=== PATIENT | male | born 1955 | race Caucasian/White ===

== ENCOUNTER 2021-02-24 14:15 | Outpatient (CLI) | payer BC, SELFPAY ==
[2021-02-24 15:08] LABS: SARS-CoV-2 RNA PCR Negative (Negative)
== END 2021-02-24 14:16 | disposition home or self-care (01) ==
LOC: CHSLAB 14:19
PROVIDERS: PCP Physician Assistant; Visit Provider Physician Assistant
DX: Z20.822 Contact with and (suspected) exposure to COVID-19 (principal)
CPT/HCPCS: C9803; U0003; U0005

== ENCOUNTER 2022-01-18 09:57 | Outpatient (CLI) | payer MEDICARE, SELFPAY ==
--- NOTE | ~2022-01-18 | CT_ITS ---
EXAMINATION:CT lung screening DATE: 01/18/2022 10:38 INDICATION: Personal history of nicotine dependence. Current smoker with 30 pack year history. TECHNIQUE: Computed tomography (CT) of the chest was performed without intravenous contrast. Automate d exposure control and iterative reconstruction technique were employed. The dose-length product (DLP ) was 244.64 mGy-cm. COMPARISON: Chest CT 09/12/2005 FINDINGS: There is mild emphysema. There is mild atelectasis bilaterally. There is a stable 4 mm nodu le in right middle lobe. A calcified left lung nodule is consistent with old granulomatous disease. T here is a 4 mm nodule in right upper lobe. There is a 4 mm nodule in right upper lobe. There is a 3 m m nodule in left upper lobe. There is a 3 mm nodule at left major fissure. No pleural effusion. The h eart size is normal. There are coronary artery calcifications. No pericardial effusion. There is mild thoracic spondylosis. IMPRESSION: 1. Lung-RADS category 2: Benign appearance or behavior. Continue annual screening with noncontrast lo w-dose chest CT in 12 months. Reviewed, dictated and finalized at location A. OR TACKER IMPRESSION: 1. Lung-RADS category 2: Benign appearance or behavior. Continue annual screeni ng with noncontrast low-dose chest CT in 12 months.
== END 2022-01-18 09:58 | disposition home or self-care (01) ==
LOC: CHSIMG 09:58
PROVIDERS: PCP Nurse Practitioner; Visit Provider Nurse Practitioner
DX: Z87.891 Personal history of nicotine dependence (principal)
CPT/HCPCS: 71271

== ENCOUNTER 2022-02-08 09:35 | Observation (INO) | payer MEDICARE, SELFPAY ==
[2022-02-08] VITALS (33 sets, daily range): BP systolic 108–149; BP diastolic 65–86; PULSE 73–102; RESP 15–29; TEMP 35.8–36.6; O2SAT 82–97; BMI 32.1
--- NOTE | ~2022-02-08 | XR_ITS ---
EXAMINATION: XR chest 2V DATE: 02/08/2022 11:22 INDICATION: Shortness of breath and cough. TECHNIQUE: Frontal and lateral views of the chest were obtained on 3 radiographs. COMPARISON: Chest 2 views 01/16/2014, chest CT 01/18/2022 FINDINGS: There are lucencies and interstitial opacities in the lungs, consistent with emphysema. No pleural effusion or pneumothorax. The heart size is normal. IMPRESSION: 1. Emphysema. Reviewed, dictated and finalized at location A. PATROLMAN IMPRESSION: 1. Emphysema.
--- NOTE | 2022-02-08 09:45 | ED.SOB ---
HPI - SOB/Dyspnea General Chief Complaint: Shortness of Breath/Dyspnea Stated Complaint: low ox level/dizzy/crakle in lungs/confusion Time Seen by Provider: 02/08/22 09:42 Source: patient Mode of arrival: ambulatory History of Present Illness HPI Narrative: 66-year-old male, smoker, history of alcohol use, hypertension, dyslipidemia, chronic low back pain presents to the ER with a 7 day history of -- cough of with minimal mucoid sputum -- shortness of breath. he was noted to be 82% on room air on presentation -- dizziness -- confusion -- diarrhea for the past few days. No vomiting. No abdominal pain . No fever or chest pain he had a negative screening CT scan for malignancy Patient went to [facility] for confusion where he was noted to have the above symptoms. He tested negative for COVID. he tested positive for influenza A. MD elicited complaint: shortness of breath and cough Onset (ago): day(s) ( started 7 days ago) Context: recent illness Exacerbating factors: exertion Relieving factors: nothing Associated symptoms: cough, wheezing and sputum production Treatment prior to arrival: none Related Data Home oxygen amount: none Home Medications Medication Instructions Recorded Confirmed amlodipine 10 mg tablet 10 mg PO DAILY 01/19/22 02/08/22 atenolol 50 mg tablet 50 mg PO DAILY 01/19/22 02/08/22 simvastatin 20 mg tablet 40 mg PO DAILY 01/19/22 02/08/22 valsartan 160 mg tablet 200 mg PO DAILY 01/19/22 02/08/22 Allergies Allergy/AdvReac Type Severity Reaction Status Date / Time No Known Allergies Allergy Verified 02/08/22 09:55 Review of Systems Review of Systems: All systems reviewed & are unremarkable except as noted in HPI and below Constitutional: Constitutional: Reports as per HPI and Reports no additional constitutional complaints Eyes: Eyes: Reports as per HPI and Reports no additional eye complaints ENT: Reports system reviewed and no additional complaints, except as documented and Reports as per HPI Cardiovascular: Cardiovascular: Reports as per HPI and Reports no additional cardiovascular complaints Respiratory: Respiratory: Reports as per HPI, Reports no additional respiratory complaints, Reports chest congestion, Reports cough, Reports dyspnea and Reports wheezing Gastrointestinal: Gastrointestinal: Reports as per HPI, Reports no additional gastrointestinal complaints and Reports diarrhea Genitourinary: Genitourinary: Reports no additional male genitourinary complaints and Reports as per HPI Musculoskeletal: Musculoskeletal: Reports no additional musculoskeletal complaints and Reports as per HPI Integumentary/Breasts: Skin/Breast: Reports system reviewed and no additional complaints, except as docu and Reports as per HPI Neurologic: Reports system reviewed and no additional complaints, except as documented and Reports as per HPI Psychiatric: Psychiatric: Reports no additional psychiatric complaints and Reports as per HPI Endocrine: Endocrine: Reports no additional endocrine complaints and Reports as per HPI Hematologic/Lymphatic: Hematologic/Lymphatic: Reports no additional hematologic/lymphatic complaints and Reports as per HPI Allergic/Immunologic: Allergic/Immunologic: Reports no additional allergic/immunologic complaints and Reports as per HPI PMFSH Past Medical History Medical History Hyperlipidemia Hypertension Surgical History Surgical History Hx of umbilical hernia repair Social History Social History Smoking packs per day: 1 Smoking cigarettes per day: 20.0 Years smoked: 35 Smoking pack-years: 35.00 Smoking status: Current every day smoker Tobacco type: cigarettes Alcohol intake: current Drinks per week: 42 Substance use: unknown Spiritual care concerns: No Exam Const:
--- NOTE | 2022-02-08 09:46 | ECG_ITS ---
Measurements Intervals [place] Rate: 83 P: 55 OK: 151 QRS: 37 QRSD: 103 T: 49 QT: 338 QTc: 398 Interpretive Statements SINUS RHYTHM BASELINE ARTIFACT- I, II, V1-V6 NORMAL ECG NO PREVIOUS ECG AVAILABLE FOR COMPARISON Electronically Signed On 02-08-2022 10:36:59 [employer] by Shane West D.O.
[2022-02-08] MEDS: IPRATROPIUM 0.5 MG/ALBUTEROL SULFATE 2.5 MG AMPUL.NEB 3 ML INHALATION (10:10)
[2022-02-08 10:14] LABS: Base Excess ABG 1.4 mmol/L (0-2); Carboxyhemoglobin 0.3 % (0-1.5); Methemoglobin ABG 0.1 % (0-1.5); Oxygen Content ABG 17.1 %vol (16.0-22.0); Oxygen Saturation ABG 89.5 % (95-97); Oxyhemoglobin 89.1 % (94-100); PCO2 ABG 36.1 mmHg (35-45); PO2 ABG 56.2 mmHg (80-90); Reduced Hemoglobin 10.5 % (0-1.5); Total Hemoglobin 13.7 g/dL (12.0-18.0); pH ABG 7.46 (7.35-7.45)
[2022-02-08 10:15] LABS: Device NASAL CANNULA; Modified Allen's Test Pass; Site Drawn RIGHT RADIAL
[2022-02-08 10:17] LABS: Hematocrit 37.4 % (37.0-46.0); Hemoglobin 13.2 g/dL (12.4-15.3); Mean Corpuscular HGB Conc 35.3 g/dL (32.0-36.0); Mean Corpuscular Hemoglobin 31.7 pg (27.0-31.0); Mean Corpuscular Volume 89.7 fL (78.0-102.0); Mean Platelet Volume 9.2 fl (8.7-11.0); Platelet Count Result 322 K/mm3 (150-420); Red Blood Count 4.17 M/mm3 (4.70-6.10); Red Cell Distribution Width 12.1 % (11.6-14.4); White Blood Count 19.7 K/mm3 (4.8-10.8)
[2022-02-08] MEDS: guaiFENesin/CODEINE 100/10 MG 5 ML SYRUP PO ×2 (10:19→21:27)
--- NOTE | 2022-02-08 10:21 | PC.NURSE ---
PT HAS PERSISTENT DRY COUGH, MEDICATION ADMINISTERED, ICE CHIPS, WATER PROVIDED. DAUGHTER AT BEDSIDE. NEB TX COMPLETED. PT IS AWAITING RESULTS AT THIS TIME.
[2022-02-08 10:30] LABS: Band Neutrophils Percent 2 % (0-6); Lymphocytes Absolute Manual 2.56 K/mm3 (1.1-4.5); Lymphocytes Percent Manual 13 % (18-44); Neutrophils Absolute Manual 16.35 K/mm3 (1.3-6.7); Neutrophils Percent Manual 81 % (46-73); Total Cells Counted 100
[2022-02-08 10:31] LABS: Monocytes Absolute Manual 0.78 K/mm3 (0.1-0.90); Monocytes Percent Manual 4 % (3-9); Platelet Estimate Adequate (Adequate)
[2022-02-08 10:37] LABS: Alanine Aminotransferase 85 U/L (16-63); Albumin Level 2.6 g/dL (3.4-5.0); Alkaline Phosphatase 70 U/L (46-116); Anion Gap 8 mmol/L (8-16); Aspartate Amino Transferase 49 U/L (15-37); Bilirubin,Total 0.3 mg/dL (0.00-1.00); Blood Urea Nitrogen 11 mg/dL (7-18); Carbon Dioxide 30 mmol/L (21-32); Chloride 92 mmol/L (98-108); Estimated CRCL calculation 89 ml/min; Estimated Glomerular Filt Rate > 60; Glucose 127 mg/dL (70-99); Osmolality Calculated 271 mOsm/kg (285-295); Potassium 3.5 mmol/L (3.5-5.1); Sodium 130 mmol/L (136-145); Total Protein 6.8 g/dL (6.4-8.2); Troponin I 5.3 ng/L (0.00-60.4)
[2022-02-08 10:44] LABS: Calcium 8.6 mg/dL (8.5-10.1); NT Pro B Type Natriuretic Pept 115 pg/mL (0-125)
[2022-02-08 10:52] LABS: Influenza A QL RT-PCR Positive (Negative); Influenza B QL RT-PCR Negative (Negative); SARS-CoV-2 RNA PCR Negative (Negative)
[2022-02-08 10:53] LABS: RSV RNA, RT-PCR Negative (Negative)
--- NOTE | 2022-02-08 11:05 | PC.NURSE ---
COUGH HAS IMPROVED. DAUGHTER REMAINS AT BEDSIDE. PT HAS BEEN UPDATED. DENIES ANY NEEDS OR COMPLAINTS. PT IS GOING TO RADIOLOGY AT THIS TIME. WILL CONTINUE TO MONITOR.
[2022-02-08] MEDS: methylPREDNISolone SOD SUCC 125 MG VIAL IV PUSH (12:00)
--- NOTE | 2022-02-08 12:20 | PC.NURSE ---
2ND CALL PLACED TO HOSPITALIST AT THIS TIME. DAUGHTER HAS LEFT, TAKEN PART OF PT BELONGINGS WITH HER. BELONGINGS LIST WAS COMPLETED. PT AND DAUGHTER ARE AWARE OF PLAN OF CARE. NAD NOTED AT THIS TIME. PT DENIES ANY NEEDS OR COMPLAINTS. WILL CONTINUE TO MONITOR.
--- NOTE | 2022-02-08 12:40 | PC.NURSE ---
LUNCH TRAY ORDERED, PT UP TO BEDSIDE WITH URINAL AT THIS TIME. HOSPITALIST RETURNED CALL AND ACCEPTED PT. WILL CONTINUE TO MONITOR.
--- NOTE | 2022-02-08 12:49 | PC.NURSE ---
pt is eating lunch tray at this time. iv medication infusing as ordered without difficulty. pt is to be admitted to room 203, aware of plan of care.
--- NOTE | 2022-02-08 13:39 | PC.NURSE ---
Pt admitted to room 203 from ED as an OBS pt. O2 @ 4L/NC, A/Ox3, denies pain at this time. Pt is accompanied by his daughter. RN instructed pt regarding the call light system, visiting hours and Droplet precautions. Pt and Daughter verbalize understanding.
[2022-02-08] MEDS: HYDROcodone/acetaminophen (*CRX) 5-325 MG TABLET 1 TAB PO (19:48)
[2022-02-09] VITALS: PULSE 70
[2022-02-09 02:49] VITALS: PULSE 68
[2022-02-09 05:40] LABS: Hemoglobin 12.6 g/dL (12.4-15.3); Mean Corpuscular Hemoglobin 32.5 pg (27.0-31.0); Mean Corpuscular Volume 90.2 fL (78.0-102.0); Mean Platelet Volume 9.2 fl (8.7-11.0); Platelet Count Result 319 K/mm3 (150-420); Red Blood Count 3.88 M/mm3 (4.70-6.10); Red Cell Distribution Width 12.1 % (11.6-14.4); White Blood Count 17.8 K/mm3 (4.8-10.8)
[2022-02-09 05:53] LABS: Anion Gap 6 mmol/L (8-16); Blood Urea Nitrogen 13 mg/dL (7-18); Calcium 8.9 mg/dL (8.5-10.1); Carbon Dioxide 31 mmol/L (21-32); Chloride 94 mmol/L (98-108); Estimated CRCL calculation 93 ml/min; Estimated Glomerular Filt Rate > 60; Glucose 159 mg/dL (70-99); Osmolality Calculated 275 mOsm/kg (285-295); Potassium 4.2 mmol/L (3.5-5.1); Sodium 131 mmol/L (136-145)
[2022-02-09 06:03] LABS: Band Neutrophils Percent 1 % (0-6); Basophils Percent Manual 0 % (0-1); Eosinophils Percent Manual 0 % (1-6); Lymphocytes Absolute Manual 1.42 K/mm3 (1.1-4.5); Lymphocytes Percent Manual 8 % (18-44); Metamyelocytes Percent 2 %; Monocytes Absolute Manual 0.35 K/mm3 (0.1-0.90); Monocytes Percent Manual 2 % (3-9); Myelocytes Percent 1 %; Neutrophils Absolute Manual 15.48 K/mm3 (1.3-6.7); Neutrophils Percent Manual 86 % (46-73); Total Cells Counted 100
[2022-02-09 06:04] LABS: Platelet Estimate Adequate (Adequate)
[2022-02-09 06:27] LABS: Base Excess ABG 3.5 mmol/L (0-2); Oxygen Content ABG 17.7 %vol (16.0-22.0); Oxygen Saturation ABG 91.1 % (95-97); Oxyhemoglobin 90.5 % (94-100); PCO2 ABG 37.4 mmHg (35-45); PO2 ABG 61.4 mmHg (80-90); Total Hemoglobin 13.9 g/dL (12.0-18.0); pH ABG 7.48 (7.35-7.45)
[2022-02-09 06:35] LABS: Device NASAL CANNULA; Modified Allen's Test Pass; Site Drawn RIGHT RADIAL
[2022-02-09 08:00] VITALS: BP 147/78; PULSE 82; PULSE 85; RESP 16; TEMP 36.8; O2SAT 96
[2022-02-09] MEDS: SIMVASTATIN 10 MG TABLET 40 MG PO (09:06)
[2022-02-09] MEDS: VALSARTAN 80 MG TABLET 160 MG PO (09:07)
[2022-02-09] MEDS: amLODIPine BESYLATE 5 MG TABLET 10 MG PO (09:07)
[2022-02-09 09:08] VITALS: PULSE 82
[2022-02-09] MEDS: atenoloL 50 MG TABLET PO (09:08)
--- NOTE | 2022-02-09 09:18 | PM.IMHP ---
H&P: HPI History of Present Illness Date/Time: 02/09/22 09:18 Chief Complaint: shortness of breath dyspnea Narrative: this is a 66-year-old male presented to our emergency department after going to his primary care physician at [facility], patient has a past medical history of hyperlipidemia, hypertension and nicotine addiction. According to patient while at home he felt fatigued with decreased appetite shortness of breath, productive cough with white sputum and diarrhea. According to patient he had the symptoms for approximately 2 weeks. He did take [id number] flu and cold medication PMFSH Past Medical History Medical History Hyperlipidemia Hypertension Surgical History Surgical History Hx of umbilical hernia repair Social History Social History (Updated 02/08/22 @ 13:48 by Katie Rush RN) Smoking packs per day: 1 Smoking cigarettes per day: 20.0 Years smoked: 40 Smoking pack-years: 40.00 Smoking status: Current every day smoker Tobacco type: cigarettes Second hand tobacco smoke exposure: No Alcohol intake: never Drinks per week: 42 Substance use: never Substance use type: does not use Lack of Transportation: No Lack of Food: Never True Current Housing: I Have Housing Concerned About Future Housing: No Difficulty Paying Gas/Electric Bills: No Difficulty Paying for Meds: No Currently Unemployed: No Education: High School Diploma/GED Difficulty w/ Childcare or Family Care: No Living arrangements: alone Gender identity (if verbalized by the patient): Male Sexual Orientation (if Verbalized by the Patient): Straight or Heterosexual Spiritual care concerns: No Meds Home Medications and Allergies Home Medications Medication Instructions Recorded Confirmed Type amlodipine 10 mg tablet 10 mg PO DAILY 01/19/22 02/08/22 History atenolol 50 mg tablet 50 mg PO DAILY 01/19/22 02/08/22 History simvastatin 20 mg tablet 40 mg PO DAILY 01/19/22 02/08/22 History valsartan 160 mg tablet 200 mg PO DAILY 01/19/22 02/08/22 History Allergies Allergy/AdvReac Type Severity Reaction Status Date / Time No Known Allergies Allergy Verified 02/08/22 09:55 Vital Signs Vital Signs - 24 hr 02/08/22 09:40 02/08/22 09:40 02/08/22 10:10 Temperature 96.6 F L Pulse Rate 88 88 81 Respiratory Rate 18 29 H Blood Pressure 149/77 H Pulse Oximetry 82 L 93 Oxygen Delivery Room Air Oxygen Flow Rate 4 02/08/22 10:21 02/08/22 09:45 02/08/22 09:53 Temperature Pulse Rate 102 H 85 Respiratory Rate 24 H 24 H Blood Pressure Pulse Oximetry 93 92 97 Oxygen Delivery Nasal Cannula Oxygen Flow Rate 10 4 02/08/22 10:00 02/08/22 10:15 02/08/22 10:30 Temperature Pulse Rate 91 82 84 Respiratory Rate 27 H 18 15 Blood Pressure Pulse Oximetry 93 96 85 L Oxygen Delivery Oxygen Flow Rate 02/08/22 10:45 02/08/22 11:00 02/08/22 11:01 Temperature Pulse Rate 77 77 82 Respiratory Rate 19 24 H 25 H Blood Pressure 135/71 Pulse Oximetry 92 95 95 Oxygen Delivery Oxygen Flow Rate 02/08/22 11:02 02/08/22 11:16 02/08/22 11:30 Temperature Pulse Rate 78 74 75 Respiratory Rate 19 20 23 H Blood Pressure Pulse Oximetry 92 91 93 Oxygen Delivery Oxygen Flow Rate 02/08/22 11:45 02/08/22 11:58 02/08/22 12:00 Temperature Pulse Rate 79 77 81 Respiratory Rate 28 H 21 H 24 H Blood Pressure 126/71 Pulse Oximetry 93 93 Oxygen Delivery Oxygen Flow Rate 02/08/22 12:01 02/08/22 12:15 02/08/22 12:16 Temperature Pulse Rate 88 73 79 Respiratory Rate 24 H 21 H 20 Blood Pressure 146/73 H 139/65 Pulse Oximetry Oxygen Delivery Oxygen Flow Rate 02/08/22 13:01 02/08/22 12:17 02/08/22 12:30 Temperature 97.1 F L Pulse Rate 94 75 79 Respiratory Rate 18 25 H 21 H Bloo
--- NOTE | 2022-02-09 09:22 | PM.SD2 ---
Same Day Admit/Disch: HPI History of Present Illness Chief complaint: low ox level/dizzy/crakle in lungs/confusion Narrative: this is a 66-year-old male presented to our emergency department after going to his primary care physician at [facility], patient has a past medical history of hyperlipidemia, hypertension and nicotine addiction. According to patient while at home he felt fatigued with decreased appetite shortness of breath, productive cough with white sputum and diarrhea. According to patient he had the symptoms for approximately 2 weeks. He did take [id number] flu and cold medication. on admission patient wbc's 19 7, hemoglobin 13.2, hematocrit 374, platelets 322, sodium 130, potassium 3.5, BUN 11, creatinine 0.82, total bilirubin 0.3, AST 49, ALT 85, troponin 5.3, BNP 115, ABG pH 7.46, CO2 36, pCO2 56.2, bicarb 25, EKG normal sinus rhythm patient positive for influenza. Chest x-ray indicates emphysema. Patient admitted for influenza and COPD exacerbation. Patient was treated with azithromycin Rocephin in his aunt, neb treatments and steroids. Patient will discharge home with Rocephin and azithromycin, Tamiflu, albuterol and Symbicort, Tessalon Perle in [facility]. Discharge instructions reviewed with patient, as well as provided in writing per nursing staff. The instructions also include specific and strict return/GO TO THE ER as well as f/u information. All questions have been answered, and the patient and/or family deny any further questions with discharge and discharge plan. patient is anxious for discharge . The patient denies SOB, CP, palpitation, extremity numbness, lightheadedness, dizziness, constipation, diarrhea, chills, or fever. does complain of a cough PMFSH Past Medical History Medical History (Updated 02/09/22 @ 11:53 by MICHELLE Sampson) Hyperlipidemia Hypertension Surgical History Surgical History Hx of umbilical hernia repair Social History Social History (Updated 02/08/22 @ 13:48 by Katie Rush RN) Smoking packs per day: 1 Smoking cigarettes per day: 20.0 Years smoked: 40 Smoking pack-years: 40.00 Smoking status: Current every day smoker Tobacco type: cigarettes Second hand tobacco smoke exposure: No Alcohol intake: never Drinks per week: 42 Substance use: never Substance use type: does not use Lack of Transportation: No Lack of Food: Never True Current Housing: I Have Housing Concerned About Future Housing: No Difficulty Paying Gas/Electric Bills: No Difficulty Paying for Meds: No Currently Unemployed: No Education: High School Diploma/GED Difficulty w/ Childcare or Family Care: No Living arrangements: alone Gender identity (if verbalized by the patient): Male Sexual Orientation (if Verbalized by the Patient): Straight or Heterosexual Spiritual care concerns: No Same Day Admit/Disch: Med Pre-admit Medications Home Medications Medication Instructions Recorded Confirmed Type amlodipine 10 mg tablet 10 mg PO DAILY 01/19/22 02/08/22 History atenolol 50 mg tablet 50 mg PO DAILY 01/19/22 02/08/22 History simvastatin 20 mg tablet 40 mg PO DAILY 01/19/22 02/08/22 History valsartan 160 mg tablet 200 mg PO DAILY 01/19/22 02/08/22 History albuterol sulfate 90 mcg/actuation 2 puff inhalation QID PRN 02/09/22 Rx aerosol inhaler shortness of breath or wheezing #8.5 grams benzonatate 200 mg capsule 200 mg PO TID PRN cough #90 caps 02/09/22 Rx budesonide-formoterol HFA 160 2 puff inhalation Q12H #10.2 grams 02/09/22 Rx mcg-4.5 mcg/actuation aerosol inhaler (Symbicort) cefdinir 300 mg capsule 300 mg PO Q12H 7 days #14 caps 02/09/22 Rx guaifenesin 400 mg tablet 400 mg PO Q4H PRN congestion #30 02/09/22 Rx tabs loperamide 2 mg capsule (Imodium 2 mg PO Q4H PRN loose stool #30 02/09/22 Rx A-D) caps methylprednisolone 4 mg tablets in See Rx
[2022-02-09 11:00] VITALS: O2SAT 94
--- NOTE | 2022-02-09 12:44 | PC.NURSE ---
Pt discharged to home with family care. Pt discharged with out O2. O2 sat was 96 % on RA. VSS. Discharge instuction given to pt. Pt verbalized understanding. Pt instructed regarding his medications. RN took pt to family car via WC and helped him in.
--- NOTE | 2022-02-10 10:36 | PC.NURSE ---
Unable to contact for discharge call back.
== END 2022-02-09 11:00 | disposition home or self-care (01) ==
LOC: CHSED 11:44 → CHS2ND 13:04
PROVIDERS: Nurse Practitioner Family; Admitting Provider Internal Medicine; Emergency Provider Internal Medicine Critical Care Medicine; PCP Nurse Practitioner; Visit Provider Internal Medicine
DX: J10.1 Influenza due to other identified influenza virus with other respiratory manifestations (principal); J96.01 Acute respiratory failure with hypoxia; J44.1 Chronic obstructive pulmonary disease with (acute) exacerbation; J45.901 Unspecified asthma with (acute) exacerbation; I10 Essential (primary) hypertension; E78.5 Hyperlipidemia, unspecified; M54.50 Low back pain, unspecified; G89.29 Other chronic pain; F17.210 Nicotine dependence, cigarettes, uncomplicated; Z20.822 Contact with and (suspected) exposure to COVID-19
CPT/HCPCS: 36415; 36600; 71046; 80048; 80053; 82375; 82805; 83050; 83880; 84484; 85025; 87040; 87637; 93005; 94640; 96365; 96367; 96375; 99285; A9270; G0378; J0456; J0696; J2930

== ENCOUNTER 2022-02-16 07:07 | Day surgery (SDC) | payer MEDICARE, SELFPAY ==
[2022-01-19 10:51] VITALS: BMI 36.1
--- NOTE | 2022-02-02 06:50 | P.PNAN_ITS ---
Anes - Initial Pre Proc Eval Procedure: Operation Date: 02/02/22 09:30 Proposed Procedures p Screening Colonoscopy - Viral Blake DO Date/Time: 02/02/22 06:50 Surgeon: Viral Blake DO Pre Op Diagnosis: Neoplasm screening Patient Data Age: 66 Gender: M Height: 1.73 m Weight: 108 kg Allergies Allergy/AdvReac Type Severity Reaction Status Date / Time No Known Allergies Allergy Verified 01/19/22 10:51 Home Medications Medication Instructions Recorded Confirmed Type amlodipine 10 mg tablet 10 mg PO DAILY 01/19/22 01/19/22 History atenolol 50 mg tablet 50 mg PO DAILY 01/19/22 01/19/22 History simvastatin 20 mg tablet 20 mg PO DAILY 01/19/22 01/19/22 History valsartan 160 mg tablet 160 mg PO DAILY 01/19/22 01/19/22 History Results Review: All pre-operative results and documents have been reviewed as part of the pre- operative evaluation. PMFSH Past Medical History Medical History (Updated 02/02/22 @ 06:50 by Franc Mcmanus DO) Hyperlipidemia Hypertension Surgical History Surgical History (Updated 02/02/22 @ 06:50 by Franc Mcmanus DO) Hx of umbilical hernia repair Social History Social History Smoking packs per day: 1 Smoking cigarettes per day: 20.0 Years smoked: 35 Smoking pack-years: 35.00 Smoking status: Current every day smoker Tobacco type: cigarettes Alcohol intake: current Drinks per week: 42 Substance use: unknown Living arrangements: alone Spiritual care concerns: No Anes - Eval Final PreProcedure Day of Procedure 02/02/22 06:50 Patient weight: obese Heart: regular rate and rhythm Lungs: clear to auscultation Airway: Mallampati scale class II Neurological: alert and oriented Last oral intake: >/= 8 hours ASA classification: III Emergent: no Anesthetic plan: proceed Anesthesia type and monitoring: general GIVS and standard monitoring Results Review: All pre-operative results and documents have been reviewed as part of the pre- operative evaluation. Informed Consent: The patient's anesthetic plan and its attendant risks and benefits were discussed with the patient/family/POA. Questions were solicited and answers provided to the satisfaction of the patient/family/POA.
--- NOTE | 2022-02-14 14:44 | PC.NURSE ---
1430 pre-op call with pt. pt was scheduled previous but had to cancel procedure, due to illness. Meds were updated and pt states no change in medical history. Pt aware of arrival time 0700 and NPO. Pt states he has instructions for his prep at home.
--- NOTE | 2022-02-16 07:02 | WPDANESEPPF ---
Anes - Initial Pre Proc Eval Procedure: Operation Date: 02/16/22 08:30 Proposed Procedures p Screening Colonoscopy - Viral Blake DO Date/Time: 02/16/22 07:02 Surgeon: Viral Blake DO Pre Op Diagnosis: Neoplasm screening Patient Data Age: 66 Gender: M Height: 1.73 m Weight: 108 kg Allergies Allergy/AdvReac Type Severity Reaction Status Date / Time No Known Allergies Allergy Verified 02/16/22 08:20 Home Medications Medication Instructions Recorded Confirmed Type amlodipine 10 mg tablet 10 mg PO DAILY 01/19/22 02/08/22 History atenolol 50 mg tablet 50 mg PO DAILY 01/19/22 02/08/22 History simvastatin 20 mg tablet 40 mg PO DAILY 01/19/22 02/08/22 History valsartan 160 mg tablet 200 mg PO DAILY 01/19/22 02/08/22 History albuterol sulfate 90 mcg/actuation 2 puff inhalation QID PRN 02/09/22 02/14/22 Rx aerosol inhaler shortness of breath or wheezing #8.5 grams benzonatate 200 mg capsule 200 mg PO TID PRN cough #90 caps 02/09/22 02/14/22 Rx budesonide-formoterol HFA 160 2 puff inhalation Q12H #10.2 grams 02/09/22 02/14/22 Rx mcg-4.5 mcg/actuation aerosol inhaler (Symbicort) guaifenesin 400 mg tablet 400 mg PO Q4H PRN congestion #30 02/09/22 02/14/22 Rx tabs methylprednisolone 4 mg tablets in See Rx Instructions PO .COMPLEX 02/09/22 02/14/22 Rx a dose pack (Medrol (Van)) #21 ea Patient hx anesthesia problems: none Family hx anesthesia problems: none Results Review: All pre-operative results and documents have been reviewed as part of the pre-operative evaluation. [facility] Past Medical History Medical History (Updated 02/16/22 @ 08:40 by Viral Blake DO) Hyperlipidemia Hypertension Surgical History Surgical History Hx of umbilical hernia repair Social History Social History (Updated 02/08/22 @ 13:48 by Katie Rush RN) Smoking packs per day: 1 Smoking cigarettes per day: 20.0 Years smoked: 40 Smoking pack-years: 40.00 Smoking status: Current every day smoker Tobacco type: cigarettes Second hand tobacco smoke exposure: No Alcohol intake: never Drinks per week: 42 Substance use: never Substance use type: does not use Lack of Transportation: No Lack of Food: Never True Current Housing: I Have Housing Concerned About Future Housing: No Difficulty Paying Gas/Electric Bills: No Difficulty Paying for Meds: No Currently Unemployed: No Education: High School Diploma/GED Difficulty w/ Childcare or Family Care: No Living arrangements: alone Gender identity (if verbalized by the patient): Male Sexual Orientation (if Verbalized by the Patient): Straight or Heterosexual Spiritual care concerns: No Anes - Eval Final PreProcedure Day of Procedure 02/16/22 07:02 Patient weight: obese Heart: regular rate and rhythm Lungs: clear to auscultation Airway: Mallampati scale class II Neurological: alert and oriented Last oral intake: 4 hours (black coffee) ASA classification: III Emergent: no Anesthetic plan: proceed Anesthesia type and monitoring: general GIVS and standard monitoring Results Review: All pre-operative results and documents have been reviewed as part of the pre-operative evaluation. Informed Consent: The patient's anesthetic plan and its attendant risks and benefits were discussed with the patient/family/POA. Questions were solicited and answers provided to the satisfaction of the patient/family/POA.
[2022-02-16 07:35] VITALS: BP 133/74; PULSE 68; RESP 16; TEMP 36.8; O2SAT 96
[2022-02-16] MEDS: LACTATED RINGERS 1,000 ML 150 ML IV CONT ×2 (08:27→09:45)
--- NOTE | 2022-02-16 08:40 | PM.IMHP ---
H&P: HPI History of Present Illness Date/Time: 02/16/22 08:40 Chief Complaint: Screening for colorectal cancer Narrative: this is a 66-year-old man who presents for colonoscopy. His last colonoscopy was at least 10 years ago. He denies any hematochezia or melena. He denies any family history of colon cancer. Review of Systems Review of Systems: All systems reviewed & are unremarkable except as noted in HPI and below Constitutional: Constitutional: Denies chills, Denies fever(s), Denies headache(s) and Denies weight loss Eyes: Eyes: Denies change in vision ENT: Denies dizziness, Denies headache(s), Denies neck mass and Denies throat swelling Cardiovascular: Cardiovascular: Denies chest pain, Denies lightheadedness and Denies dyspnea Respiratory: Respiratory: Denies cough, Denies dyspnea and Denies wheezing Gastrointestinal: Gastrointestinal: Denies abdominal pain, Denies change in bowel habits, Denies nausea and Denies vomiting Genitourinary: Genitourinary: Denies hematuria and Denies dysuria Musculoskeletal: Musculoskeletal: Reports as per HPI Integumentary/Breasts: Skin/Breast: Reports as per HPI Neurologic: Denies dizziness and Denies headache(s) Allergic/Immunologic: Allergic/Immunologic: Denies throat swelling and Denies wheezing PMF Past Medical History Medical History (Updated 02/16/22 @ 08:40 by Viral Blake DO) Hyperlipidemia Hypertension Surgical History Surgical History Hx of umbilical hernia repair Social History Social History (Updated 02/08/22 @ 13:48 by Katie Rush RN) Smoking packs per day: 1 Smoking cigarettes per day: 20.0 Years smoked: 40 Smoking pack-years: 40.00 Smoking status: Current every day smoker Tobacco type: cigarettes Second hand tobacco smoke exposure: No Alcohol intake: never Drinks per week: 42 Substance use: never Substance use type: does not use Lack of Transportation: No Lack of Food: Never True Current Housing: I Have Housing Concerned About Future Housing: No Difficulty Paying Gas/Electric Bills: No Difficulty Paying for Meds: No Currently Unemployed: No Education: High School Diploma/GED Difficulty w/ Childcare or Family Care: No Living arrangements: alone Gender identity (if verbalized by the patient): Male Sexual Orientation (if Verbalized by the Patient): Straight or Heterosexual Spiritual care concerns: No Meds Home Medications and Allergies Home Medications Medication Instructions Recorded Confirmed Type amlodipine 10 mg tablet 10 mg PO DAILY 01/19/22 02/16/22 History atenolol 50 mg tablet 50 mg PO DAILY 01/19/22 02/16/22 History simvastatin 20 mg tablet 40 mg PO DAILY 01/19/22 02/16/22 History valsartan 160 mg tablet 200 mg PO DAILY 01/19/22 02/16/22 History albuterol sulfate 90 mcg/actuation 2 puff inhalation QID PRN 02/09/22 02/16/22 Rx aerosol inhaler shortness of breath or wheezing #8.5 grams benzonatate 200 mg capsule 200 mg PO TID PRN cough #90 caps 02/09/22 02/16/22 Rx budesonide-formoterol HFA 160 2 puff inhalation Q12H #10.2 grams 02/09/22 02/16/22 Rx mcg-4.5 mcg/actuation aerosol inhaler (Symbicort) guaifenesin 400 mg tablet 400 mg PO Q4H PRN congestion #30 02/09/22 02/16/22 Rx tabs methylprednisolone 4 mg tablets in See Rx Instructions PO .COMPLEX 02/09/22 02/16/22 Rx a dose pack (Medrol (Van)) #21 ea Allergies Allergy/AdvReac Type Severity Reaction Status Date / Time No Known Allergies Allergy Verified 02/16/22 08:20 Vital Signs Vital Signs - 24 hr 02/16/22 07:35 Temperature 36.8 C Pulse Rate 68 Respiratory Rate 16 Blood Pressure 133/74 Pulse Oximetry 96 Oxygen Delivery Room Air Exam Const: General: no acute distress and alert Orientation/consciousness: patient oriented x3 HENMT: Head: normocephalic and atraumatic Ears: hearing grossly normal bilaterally Face/
[2022-02-16 10:23] VITALS: BP 95/82; PULSE 67; RESP 18; O2SAT 99
[2022-02-16 10:33] VITALS: BP 85/62; PULSE 68; RESP 18; O2SAT 97
[2022-02-16 10:43] VITALS: BP 98/66; PULSE 70; RESP 18; O2SAT 100
--- NOTE | 2022-02-16 10:47 | SUR.PHASEII ---
1033; PT BP 85/62, HR 68. PT AWAKE AND ALERT. SITTING UPRIGHT, DRINKING JUICE, TALKATIVE. DR LINCOLN NOTIFIED. CONTINUE IVF. 1043; BP 98/66. PT AWAKE AND ALERT. DRINKING JUICE, TALKATIVE. COUGHING INTERMITTENTLY. 1053; BP 112/64, SAO2 100%. PT AWAKE AND ALERT. DENIES PAIN. DR LINCOLN NOTIFIED. MAY DISCHARGE PT.
--- NOTE | 2022-02-16 10:48 | WPDANESPN ---
Anes - Prog Note Post-Op Date/Time: 02/16/22 10:48 Cardiovascular status: normal Respiratory status: normal Airway patency: baseline Mental status: baseline Post-Op hydration status: normal Vital Signs: Last Vital Signs Temp 36.8 C 02/16/22 07:35 Pulse 68 02/16/22 10:33 Resp 18 02/16/22 10:33 BP 85/62 L 02/16/22 10:33 Pulse Ox 97 02/16/22 10:33 O2 Del Method Room Air 02/16/22 10:33 Pain Score (VAS): 0 Post-procedural complaints: none Patient Feedback: Patient satisfied with anesthetic care. Other Findings: Patient vital signs back to baseline. Patient denies nausea and vomiting. Patient's pain under control. Patient OK for discharge.
[2022-02-16 10:53] VITALS: BP 112/64; PULSE 70; RESP 18
--- NOTE | 2022-02-16 10:56 | SUR.PHASEII ---
CHECKED ON PT. PT HAS BOTTOM HALF DRESSED,. ASKING TO GO HOME.
[2022-02-16 11:05] VITALS: BP 134/62; PULSE 70; RESP 20
--- NOTE | 2022-02-16 11:07 | SUR.PHASEII ---
WHILE REVIEWING INSTRUCTIONS WITH PT AND DAUGHTER. DISCUSSED CLEAR LIQUID DIET AT FIRST, PT SAID THATS NOT GONNA HAPPEN ALSO DISCUSSED NO DRIVING TODAY AND NO ALCOHOL. PT SAID I'LL DRIVE AND NOT GET CAUGHT. EXPLAINED TO COULD INJURE HIMSELF OR SOMEONE ELSE. DAUGHTER SCOLDING PT.
== END 2022-02-16 11:10 | disposition home or self-care (01) ==
PROVIDERS: PCP Nurse Practitioner; Visit Provider Surgery
PROC: 0DJD8ZZ Inspection of Lower Intestinal Tract, Via Natural or Artificial Opening Endoscopic (ICD-10-PCS; CPT 45378; principal; 2022-02-16 08:30)
DX: Z12.11 Encounter for screening for malignant neoplasm of colon (principal)
CPT/HCPCS: 45380

== ENCOUNTER 2022-02-16 08:00 | Outpatient (NON) | payer MEDICARE, SELFPAY | END 2022-02-16 08:01 | disposition home or self-care (01) | LOC: ANHLAB 02-17 08:11 | PROVIDERS: PCP Nurse Practitioner; Visit Provider Surgery | DX: Z12.11 Encounter for screening for malignant neoplasm of colon (principal); Z12.12 Encounter for screening for malignant neoplasm of rectum; D12.6 Benign neoplasm of colon, unspecified | CPT/HCPCS: 88305 ==

== ENCOUNTER 2022-04-26 10:40 | Outpatient (CLI) | payer MEDICARE, SELFPAY ==
[2022-04-26 11:02] LABS: Basophils Absolute Auto 0.03 K/mm3 (0.00-0.10); Basophils Percent Auto 0.4 % (0.0-1.0); Eosinophils Absolute Auto 0.15 K/mm3 (0.02-0.50); Eosinophils Percent Auto 1.8 % (1.0-6.0); Hematocrit 40.2 % (37.0-46.0); Hemoglobin 13.9 g/dL (12.4-15.3); Immature Granulocyte Absolute 0.05 K/mm3 (0.00-0.00); Immature Granulocyte Percent A 0.6 % (0.0-0.0); Lymphocytes Absolute Auto 2.42 K/mm3 (1.10-4.50); Lymphocytes Percent Auto 28.7 % (18.0-42.0); Mean Corpuscular HGB Conc 34.6 g/dL (32.0-36.0); Mean Corpuscular Hemoglobin 32.2 pg (27.0-31.0); Mean Corpuscular Volume 93.1 fL (78.0-102.0); Mean Platelet Volume 9.3 fl (8.7-11.0); Monocytes Absolute Auto 0.59 K/mm3 (0.10-0.90); Neutrophils Absolute Auto 5.2 K/mm3 (1.7-7.2); Neutrophils Percent Auto 61.5 % (50.0-70.0); Platelet Count Result 222 K/mm3 (150-420); Red Blood Count 4.32 M/mm3 (4.70-6.10); Red Cell Distribution Width 12.1 % (11.6-14.4); White Blood Count 8.4 K/mm3 (4.8-10.8)
[2022-04-26 11:19] LABS: Hemoglobin A1C 5.4 % (<5.7)
[2022-04-26 11:41] LABS: Alanine Aminotransferase 25 U/L (16-63); Albumin Level 3.5 g/dL (3.4-5.0); Alkaline Phosphatase 55 U/L (46-116); Anion Gap 4 mmol/L (8-16); Aspartate Amino Transferase 24 U/L (15-37); Bilirubin,Total 0.2 mg/dL (0.00-1.00); Blood Urea Nitrogen 14 mg/dL (7-18); Calcium 8.4 mg/dL (8.5-10.1); Carbon Dioxide 30 mmol/L (21-32); Chloride 96 mmol/L (98-108); Cholesterol 178 mg/dL (0-200); Estimated Glomerular Filt Rate > 60; Glucose 97 mg/dL (70-99); HDL Direct 53 mg/dL (40-60); LDL Cholesterol Calculated 103 mg/dL (<130); Osmolality Calculated 270 mOsm/kg (285-295); Potassium 4.6 mmol/L (3.5-5.1); Sodium 130 mmol/L (136-145); Total Protein 6.1 g/dL (6.4-8.2); Triglycerides 112 mg/dL (0-150)
== END 2022-04-26 10:41 | disposition home or self-care (01) ==
LOC: CHSLAB 10:42
PROVIDERS: PCP Nurse Practitioner; Visit Provider Nurse Practitioner
DX: E78.5 Hyperlipidemia, unspecified (principal); I10 Essential (primary) hypertension; R73.03 Prediabetes; Z13.31 Encounter for screening for depression; Z71.6 Tobacco abuse counseling; Z78.9 Other specified health status
CPT/HCPCS: 36415; 80053; 80061; 83036; 85025

== ENCOUNTER 2022-09-27 15:30 | Emergency (ER) | payer MEDICARE, SELFPAY ==
[2022-09-27 15:30] VITALS: BP 154/73; PULSE 66; RESP 18; TEMP 36.6; O2SAT 97
--- NOTE | 2022-09-27 15:37 | ED.EYEPROB ---
HPI - Eye Problem General Chief complaint: Eye Problems Stated complaint: right eye foriegn body Time Seen by Provider: 09/27/22 15:37 Source: patient and RN notes reviewed Mode of arrival: ambulatory Limitations: no limitations History of Present Illness chief complaint: eye injury Onset (ago): hour(s) (1) Onset description: sudden Duration: improved Location: right eye Eye Symptoms: pain and foreign body sensation Place: home Mechanism: occurred while hammering/grinding Severity: moderate If Pain, Quality: burning Associated symptoms: none Treatments Prior to Arrival: irrigated eye Related Data Home Medications Medication Instructions Recorded Confirmed amlodipine 10 mg tablet 10 mg PO DAILY 01/19/22 09/27/22 atenolol 50 mg tablet 50 mg PO DAILY 01/19/22 09/27/22 simvastatin 20 mg tablet 40 mg PO DAILY 01/19/22 09/27/22 valsartan 160 mg tablet 200 mg PO DAILY 01/19/22 09/27/22 Allergies Allergy/AdvReac Type Severity Reaction Status Date / Time No Known Allergies Allergy Verified 09/27/22 15:43 Review of Systems Review of Systems: All systems reviewed & are unremarkable except as noted in HPI and below PMFSH Past Medical History Medical History Hyperlipidemia Hypertension Surgical History Surgical History Hx of umbilical hernia repair Social History Social History Smoking packs per day: 1 Smoking cigarettes per day: 20.0 Years smoked: 40 Smoking pack-years: 40.00 Smoking status: Current every day smoker Tobacco type: cigarettes Second hand tobacco smoke exposure: No Alcohol intake: never Drinks per week: 42 Substance use: never Substance use type: does not use Lack of Transportation: No Lack of Food: Never True Current Housing: I Have Housing Concerned About Future Housing: No Difficulty Paying Gas/Electric Bills: No Difficulty Paying for Meds: No Currently Unemployed: No Education: High School Diploma/GED Difficulty w/ Childcare or Family Care: No Living arrangements: alone Gender identity (if verbalized by the patient): Male Sexual Orientation (if Verbalized by the Patient): Straight or Heterosexual Spiritual care concerns: No Exam Const: General: healthy appearing, no acute distress and alert Nutritional Appearance: well nourished Orientation/consciousness: patient oriented x3 Limitations: no limitations HENMT: Head: normal to inspection Ears: external ears normal Face/Nose/Sinus: Normal external nose present Face and sinus: normal facial exam Mouth: Yes moist mucous membranes Eyes: Visual Chino: normal visual chino by confrontation Periorbital: periorbital findings normal Eyelids: eyelids normal and other ( upper eyelid inverted no foreign body found) Conjunctivae: conjunctivae normal Sclera: sclerae normal Cornea: corneas abnormal on the left fluorescein used and abrasion central and punctate Pupils: Equal, round and reactive pupils present EOM: EOMs intact bilaterally Neck: Neck: normal visual inspection Resp: Effort & Inspection: normal respiratory effort Auscultation: clear to auscultation bilaterally Cardio: Rate: regular rate Rhythm: regular rhythm GI: GI Palp: Yes Soft to palpation and No Tenderness to palpation present (GI) Auscultation: normal bowel sounds Back/Spine/Pelvis: Cervical Spine: cervical ROM normal Thoracic/Lumbar Spine: thoraco-lumbar ROM normal Skin: General skin exam: normal color Rashes: no rashes Neuro: General: patient oriented x3, moves all extremities, no focal motor deficits and CN's II-XI intact bilaterally Speech: normal speech Gait exam (Neuro): Normal gait present Extrem: General: normal to inspection and no clubbing, cyanosis or edema Psych: Mental Status: mental status grossly normal Affect: normal affect Attitude: coop
[2022-09-27] MEDS: TETRACAINE HCL 0.5% OPHTH SOLN 4 ML BTL 1 DROP RIGHT EYE (15:44)
[2022-09-27] MEDS: DACRIOSE EYE IRRIGATION 118 ML BOTTLE 10 ML RIGHT EYE (15:44)
[2022-09-27] MEDS: FLUORESCEIN SOD 1 MG/STRIP RIGHT EYE (15:44)
--- NOTE | 2022-09-27 16:06 | PC.NURSE ---
PT EYE WAS STAINED PER ERP, TOLERATED WELL.
== END 2022-09-27 15:55 | disposition home or self-care (01) ==
LOC: CHSED 15:57
PROVIDERS: Emergency Provider Emergency Medicine; PCP Nurse Practitioner
DX: S05.01XA Injury of conjunctiva and corneal abrasion without foreign body, right eye, initial encounter (principal); E78.5 Hyperlipidemia, unspecified; I10 Essential (primary) hypertension; F17.210 Nicotine dependence, cigarettes, uncomplicated; W45.8XXA Other foreign body or object entering through skin, initial encounter; Y92.009 Unspecified place in unspecified non-institutional (private) residence as the place of occurrence of the external cause
CPT/HCPCS: 99283; A9270

== ENCOUNTER 2023-07-26 08:41 | Outpatient (CLI) | payer MEDICARE, SELFPAY ==
--- NOTE | ~2023-07-26 | US_ITS ---
EXAMINATION: US aorta [facility] DATE: 07/26/2023 09:12 INDICATION: Abdominal aortic aneurysm screening with risk factors of hypertension, hypercholesterolem ia, morbid obesity and current smoker. TECHNIQUE: Grayscale, color Doppler, and pulsed Doppler images of the aorta and common iliac arteries were obtained. COMPARISON: None. FINDINGS: The proximal aorta measures 1.9 cm AP. The mid aorta measures 1.6 cm AP. The distal aorta and the rig ht and left common iliac arteries are obscured by shadowing bowel gas. IMPRESSION: 1. Normal caliber proximal to mid abdominal aorta. The distal aorta and bilateral common iliac arteri es are obscured by shadowing bowel gas. Reviewed, dictated and finalized at location A. IMPRESSION: 1. Normal caliber proximal to mid abdominal aorta. The distal aorta and bilater al common iliac arteries are obscured by shadowing bowel gas.
--- NOTE | ~2023-07-26 | CT_ITS ---
CT Scan of the Chest without Contrast: Clinical Indication: Lung cancer screening, nicotine dependence Technique: Contiguous sections were acquired throughout the chest without intravenous contrast. Dose reduction technique was used on this scan by utilizing automated exposure control and iterative recon struction technique. The dose-length product (DLP) was 324.17 mGy-cm. COMPARISON: 01/18/2022 Findings: There is no evidence of any significant mediastinal, hilar or axillary lymphadenopathy. There are ext ensive atherosclerotic calcifications of the aorta and coronary arteries. There is no evidence of pleural or pericardial effusion. There is a 1 cm spiculated nodule in the left upper lobe, new from prior exam. Images through the upper abdomen reveal no abnormalities. Impression: Lung RADS 4B: Very suspicious. PET/CT or tissue sampling should be considered to further evaluate at this time. Reviewed, dictated and finalized at [facility]. Impression: Lung RADS 4B: Very suspicious. PET/CT or tissue sampling should be considered t o further evaluate at this time.
== END 2023-07-26 08:42 | disposition home or self-care (01) ==
LOC: CHSIMG 08:43
PROVIDERS: PCP Nurse Practitioner Family; Visit Provider Nurse Practitioner Family
DX: Z12.2 Encounter for screening for malignant neoplasm of respiratory organs (principal); R91.8 Other nonspecific abnormal finding of lung field; Z87.891 Personal history of nicotine dependence; Z13.6 Encounter for screening for cardiovascular disorders
CPT/HCPCS: 71271; 76706

== ENCOUNTER 2023-08-12 13:20 | Emergency (ER) | payer MEDICARE, SELFPAY ==
--- NOTE | ~2023-08-12 | XR_ITS ---
EXAMINATION: XR elbow LT min 3V DATE: 08/12/2023 14:17 INDICATION: Left elbow injury and pain. TECHNIQUE: 4 views of left elbow were obtained. COMPARISON: None. FINDINGS: There is a comminuted fracture of olecranon of proximal ulna. The main distal fracture frag ment demonstrates near-anatomic alignment. There is mild elbow joint osteoarthritis. There is no elbo w joint effusion. There is soft tissue swelling overlying the olecranon. IMPRESSION: 1. Comminuted fracture of the olecranon of proximal ulna. Reviewed, dictated and finalized at location E.
--- NOTE | ~2023-08-12 | CT_ITS ---
EXAMINATION: CT brain wo con DATE: 08/12/2023 14:16 INDICATION: Head injury. TECHNIQUE: Computed tomography (CT) of the head was performed without intravenous contrast. The mA wa s adjusted according to patient size. Iterative reconstruction technique was employed. The dose-lengt h product was 681.00 mGy-cm. COMPARISON: None FINDINGS: There is no intracranial hemorrhage, acute infarction, or abnormal intracranial mass lesion . There are scattered areas of low attenuation in the cerebral white matter, which is within normal l imits for the patient's age. The ventricles are normal in size. The orbits are normal. There is mild mucosal thickening in the paranasal sinuses. The mastoid air cells are normal. IMPRESSION: 1. Normal aging brain. Reviewed, dictated and finalized at location E. IMPRESSION: 1. Normal aging brain.
[2023-08-12 13:20] VITALS: BP 162/91; PULSE 68; RESP 18; TEMP 36.4; O2SAT 98
--- NOTE | 2023-08-12 13:48 | ED.UPPEXIN ---
HPI - Extremity Injury (Upper) General Chief Complaint: Extremity Injury, Upper Stated Complaint: fall; left elbow pain Time Seen by Provider: 08/12/23 13:47 History of Present Illness HPI narrative: 68-year-old male with a history of hypertension, dyslipidemia, COPD had a fall half an hour ago and presents with -- forehead abrasion/ head injury-- no loss of consciousness. No focal neuro deficits. No headache or vomiting -- left elbow pain with decreased range of motion no other injuries noted. MD complaint: injury to: left and elbow Onset (ago): minute(s) ( 30 [address] ago) [address]: home Severity: moderate Relieving factors: immobilization Exacerbating factors: movement of extremity Context: fall Associated symptoms: denies other symptoms Related Data Home Medications Medication Instructions Recorded Confirmed amlodipine 10 mg tablet 10 mg PO DAILY 01/19/22 09/27/22 atenolol 50 mg tablet 50 mg PO DAILY 01/19/22 09/27/22 simvastatin 20 mg tablet 40 mg PO DAILY 01/19/22 09/27/22 valsartan 160 mg tablet 200 mg PO DAILY 01/19/22 09/27/22 Allergies Allergy/AdvReac Type Severity Reaction Status Date / Time No Known Allergies Allergy Verified 08/12/23 13:49 Review of Systems Review of Systems: All systems reviewed & are unremarkable except as noted in HPI and below Constitutional: Constitutional: Reports as per HPI and Reports no additional constitutional complaints Eyes: Eyes: Reports as per HPI and Reports no additional eye complaints ENT: Reports system reviewed and no additional complaints, except as documented and Reports as per HPI Cardiovascular: Cardiovascular: Reports as per HPI and Reports no additional cardiovascular complaints Respiratory: Respiratory: Reports cough and Reports dyspnea Gastrointestinal: Gastrointestinal: Reports as per HPI and Reports no additional gastrointestinal complaints Genitourinary: Genitourinary: Reports no additional male genitourinary complaints and Reports as per HPI Musculoskeletal: Musculoskeletal: Reports no additional musculoskeletal complaints and Reports as per HPI Comments: left elbow pain with decreased range of motion Integumentary/Breasts: Skin/Breast: Reports system reviewed and no additional complaints, except as docu and Reports as per HPI Comments: abrasion of the left elbow Neurologic: Reports system reviewed and no additional complaints, except as documented and Reports as per HPI Psychiatric: Psychiatric: Reports no additional psychiatric complaints and Reports as per HPI Endocrine: Endocrine: Reports no additional endocrine complaints and Reports as per HPI Hematologic/Lymphatic: Hematologic/Lymphatic: Reports no additional hematologic/lymphatic complaints and Reports as per HPI Allergic/Immunologic: Allergic/Immunologic: Reports no additional allergic/immunologic complaints and Reports as per HPI PMFSH Past Medical History Medical History Hyperlipidemia Hypertension Surgical History Surgical History Hx of umbilical hernia repair Social History Social History Smoking packs per day: 1 Smoking cigarettes per day: 20.0 Years smoked: 40 Smoking pack-years: 40.00 Smoking status: Current every day smoker Tobacco type: cigarettes Second hand tobacco smoke exposure: No Alcohol intake: never Drinks per week: 42 Substance use: never Substance use type: does not use Lack of Transportation: No Lack of Food: Never True Current Housing: I Have Housing Concerned About Future Housing: No Difficulty Paying Gas/Electric Bills: No Difficulty Paying for Meds: No Currently Unemployed: No Education: High School Diploma/GED Difficulty w/ Childcare or Family Care: No Living arrangements: alone Gender identity (if verbalized by the patient):
[2023-08-12 15:00] VITALS: BP 133/80; PULSE 80; RESP 16; TEMP 36.5; O2SAT 96
[2023-08-12] MEDS: TETANUS,DIPHTHERIA,AC PERTUSSIS ADULT 0.5 ML (ADACEL) IM (15:45)
[2023-08-12] MEDS: cefTRIAXone 1 GM, LIDOCAINE HCL 1% LOCAL INJ 2.1 ML IM (15:51)
[2023-08-12 16:14] VITALS: BP 145/78; PULSE 81; RESP 18; TEMP 36.8; O2SAT 96
== END 2023-08-12 16:14 | disposition home or self-care (01) ==
PROVIDERS: Emergency Provider Internal Medicine Critical Care Medicine; PCP Nurse Practitioner Family
DX: S52.022A Displaced fracture of olecranon process without intraarticular extension of left ulna, initial encounter for closed fracture (principal); S09.90XA Unspecified injury of head, initial encounter; W19.XXXA Unspecified fall, initial encounter; I10 Essential (primary) hypertension; E78.5 Hyperlipidemia, unspecified; J44.9 Chronic obstructive pulmonary disease, unspecified; F17.210 Nicotine dependence, cigarettes, uncomplicated; Z23 Encounter for immunization; Z79.51 Long term (current) use of inhaled steroids
CPT/HCPCS: 29105; 70450; 73080; 90471; 90715; 96372; 99284; A4565; J0696

== ENCOUNTER 2023-08-18 10:10 | Outpatient (CLI) | payer MEDICARE, SELFPAY ==
--- NOTE | 2023-08-18 12:03 | WPDPFTINT ---
PFT Procedure Performed PFT Procedure Performed Spirometry with Pre/Post Bronchodilator Plethysmography (Lung Vol) Diffusing Cap (DLCO) Flow Vol Loop PFT Interpretation Lung volumes were measured with the body plethysmography method. Lung volumes are unremarkable. Spirometry showed diminished expiratory flow rates and a diminished FEV1 to FVC ratio 61%, consistent with obstructive airway disease. Following administration of a bronchodilator there was no significant increase in expiratory flow rates. Lung diffusion capacity is within the normal range at 73% predicted. The flow volume loop is consistent with obstructive airway disease. Impression: Mild obstructive airway disease with no response to bronchodilators on this testing. Lung diffusion capacity within the normal range.
--- NOTE | 2023-08-18 12:05 | WPDSIXMINUTE ---
Six Minute Walk Procedure Procedure Performed Pulmonary Stress Test (6 min walk) Six Minute Walk Six Minute Walk: This 6 minute walk test was conducted with the patient breathing ambient air. The pre walk baseline oxyhemoglobin saturation was 94 %. The patient walked 213 m with no stops during testing. During the walk the oxyhemoglobin saturation remained in the range of a 94% to 96%. Impression: No evidence of oxyhemoglobin desaturation on this testing.
== END 2023-08-18 10:11 | disposition home or self-care (01) ==
LOC: ANHPFT 10:11
PROVIDERS: PCP Nurse Practitioner Family; Visit Provider Internal Medicine Pulmonary Disease
DX: J44.1 Chronic obstructive pulmonary disease with (acute) exacerbation (principal); J45.901 Unspecified asthma with (acute) exacerbation; R94.2 Abnormal results of pulmonary function studies
CPT/HCPCS: 94060; 94618; 94726; 94729

== ENCOUNTER 2023-08-22 07:50 | Outpatient (CLI) | payer MEDICARE, SELFPAY ==
--- NOTE | ~2023-08-22 | PE_ITS ---
EXAMINATION: PET skull to mid thigh DATE: 08/22/2023 09:29 INDICATION: Solitary pulmonary nodule TECHNIQUE: Blood glucose level was 110 mg/dL. 10.254 mCi of 18-fluorodeoxyglucose (18-FDG) was admini stered i.v. Low dose computed tomography (CT) images were acquired from the base of the brain to the proximal thighs for attenuation correction and anatomic localization. Positron emission tomography (P ET) images were acquired in the same distribution beginning 46 minutes after injection. Images includ ing fused PET/CT images were reconstructed in axial, coronal, and sagittal planes. Automated exposure control technique was employed. The dose-length product was 1233.32mGy-cm. COMPARISON: Chest CT dated 07/25/2021 FINDINGS: Head/neck: Along the right mandible is a small focus of likely dental disease related increased uptake associate d with a periapical lucency surrounding a small residual portion of what appears to be the second bic uspid. There is otherwise symmetric increased activity in the oral cavity, palatine tonsils, laryngea l muscles and ocular muscles without CT correlate, likely physiologic. No pathologically enlarged cer vical lymphadenopathy or suspicious foci of increased FDG uptake in the visualized head or neck. Chest: No evident FDG uptake associated with an unchanged 4 mm right middle lobe nodule. There is mild scatt ered atelectasis in both lungs. No new or enlarging pulmonary nodules. No pneumonia, pulmonary edema or pleural effusion. Heart size is normal. Atherosclerotic coronary artery calcification. No pericard ial effusion. Thoracic aorta is normal in caliber. No pathologically enlarged or FDG avid thoracic ly mphadenopathy. Abdomen/pelvis/proximal thighs: Physiologic renal accumulation and excretion of FDG activity in the kidneys, bladder and along portio ns of ureters. 1.8 cm low-attenuation photopenic cyst at the upper pole the right kidney. Prostatomeg antoinette. Normal degree and heterogenous pattern of increased uptake throughout the liver without radiolog ic correlate or dominant FDG avid lesion. The gallbladder, pancreas, spleen and bilateral adrenal gla nds are normal. Mild uptake scattered throughout the bowels without radiologic correlate, also likely physiologic. There is moderate sigmoid diverticulosis without adjacent inflammatory stranding to sug gest diverticulitis. Small fat-containing umbilical and moderate-sized fat-containing supraumbilical ventral hernias. No other abnormal foci of increased FDG uptake or pathologically enlarged lymphadeno thom in the abdomen, pelvis or proximal thighs. Musculoskeletal: Mild uptake overlying the left greater trochanter without radiologic correlate consistent with trocha nteric bursitis. There is also diffuse mild likely physiologic synovial uptake at the bilateral gleno humeral and acromioclavicular joints. There are a few small sclerotic likely bone islands in the pelv is. No suspicious lytic or FDG avid bone lesions. IMPRESSION: 1. No evident FDG uptake associated with a chronic 4 mm right middle lobe nodule likely sequela of ol d granulomatous disease. No FDG avid lesions suspicious for primary or metastatic disease in the visu alized head, neck, chest, abdomen or pelvis. 2. Likely dental disease related mild uptake associated with a periapical lucency at the right fibula r second bicuspid/premolar. 3. Prostatomegaly. 4. Small fat-containing umbilical and moderate-sized fat-containing supraumbilical ventral hernias. Reviewed, dictated and finalized at location A. IMPRESSION: 1. No evident FDG uptake associated with a chronic 4 mm right middle lobe nodul e likely sequela of old granulomatous disease. No FDG avid lesions suspicious f or primary or metastatic disease in the visualized head, neck, chest, abdomen o r p
[2023-08-22 08:06] LABS: Glucose Point of Care 110 mg/dl (65-105)
== END 2023-08-22 07:51 | disposition home or self-care (01) ==
PROVIDERS: PCP Nurse Practitioner Family; Visit Provider Internal Medicine Pulmonary Disease
DX: R91.1 Solitary pulmonary nodule (principal); N40.0 Benign prostatic hyperplasia without lower urinary tract symptoms; K42.9 Umbilical hernia without obstruction or gangrene; K43.9 Ventral hernia without obstruction or gangrene
CPT/HCPCS: 78815; A9552